=== PATIENT | male | born 1985 ===

== ENCOUNTER 2021-10-04 11:37 | Emergency (ER) | payer SELFPAY ==
[~2021-10-04] VITALS: Ht 182.9 cm; Wt 81.8 kg
[2021-10-04 11:53] VITALS: BP 139/84
== END 2021-10-04 12:05 ==
LOC: ER 11:38
DX: S21.109D Unspecified open wound of unspecified front wall of thorax without penetration into thoracic cavity, subsequent encounter (principal); X58.XXXD Exposure to other specified factors, subsequent encounter
CPT/HCPCS: 99283